=== PATIENT | female | born 1970 | race American Indian/Alaskan Native ===

== ENCOUNTER 2016-05-24 06:32 | Inpatient (IN) | payer BC ==
--- NOTE | 2016-05-19 12:56 | Anesthesia Consultation ---
Anesthesia Consult and Med Hx Date of service: 05/19/16 - Airway Anesthetic Teeth Evaluation: Good ROM Head & Neck: Adequate Mental/Hyoid Distance: Adequate Mallampati Class: Class II Intubation Access Assessment: Probably Good - Pulmonary Exam CTA: Yes - Cardiac Exam Cardiac Exam: RRR - Pre-Operative Health Status ASA Pre-Surgery Classification: ASA2 Proposed Anesthetic Plan: General Nerve Block: TAP - Pulmonary Hx Smoking: Yes (former) - Cardiovascular System Hx Hypertension: Yes (x 15 yrs) - Hematic Hx Anemia: Yes - Other Systems Hx Alcohol Use: Yes (occas) Hx Cancer: No
[2016-05-19 13:11] LABS: Eosinophils % (Auto) 0.6 % (0.0-4.3); Hematocrit 28.1 % (30.3-42.9); Hemoglobin 8.5 gm/dl (10.1-14.3); Mean Corpuscular HGB Conc 30 % (30-34); Mean Corpuscular Hemoglobin 21 pg (28-32); Mean Corpuscular Volume 69 fl (79-97); Platelet Count 310 K/mm3 (140-440); Red Blood Count 4.11 M/mm3 (3.65-5.03); Red Cell Distribution Width 19.6 % (13.2-15.2); White Blood Count 3.5 K/mm3 (4.5-11.0)
[2016-05-19 13:17] LABS: Anion Gap 14 mmol/L; Blood Urea Nitrogen 9 mg/dL (7-17); Calcium 9.4 mg/dL (8.4-10.2); Carbon Dioxide 27 mmol/L (22-30); Chloride 101.8 mmol/L (98-107); Glucose 98 mg/dL (65-100); Potassium 3.7 mmol/L (3.6-5.0); Sodium 139 mmol/L (137-145)
--- NOTE | 2016-05-23 17:48 | Admit Criteria Form ---
Admission Criteria Documentation: AMBULATORY SURGERY EXCEPTION CRITERIA Ambulatory Surgery Exception Criteria ( Place 'X' for any and all applicable criteria): Surgery or procedure performed on ambulatory basis may require inpatient stay for[A] ANY ONE of the following(1)(2)(3)(4)(5)(6)(7)(8)(9): [X] I. A preoperative situation, condition, or finding that warrants inpatient stay as indicated by ANY ONE of the following: [] a) Inpatient care needed because of severity of a disease or condition rather than the surgery (eg, severe cardiac or respiratory disease, severe infection) (15) (16 ) (17) (18) [] b) Emergent procedure (eg, angioplasty for acute ischemia)(19) [X] c) Complex surgical approach or situation as indicated by ANY ONE of the following(3): [X] i) Open approach needed instead of usual endoscopic, transcatheter, or other less invasive procedure [] ii) Difficult approach because of previous operation [] iii) Airway monitoring required after open neck procedures(20)(21) [] iv) Large mass requiring unusually extensive dissection [] v) Additional complicating feature requiring inpatient care (eg, drain management)(22(23): [] d) Major surgery in a pt with high anesthetic risk as indicated by ANY ONE of the following (2)(3)(5)(7)(8): [] i) ASA risk class III or higher (severe systemic disease impairing function) [D] [] ii) Advanced age (eg, older than 85 years)(14)(24) [] iii) Symptomatic heart failure(25) [] iv) Symptomatic asthma or COPD(8)(21) [] v) Morbid obesity with hemodynamic or respiratory problems(20)( 21)(26)(27) [] vi) Obstructive sleep apnea(20)(21) [] vii) Former premature infants who are younger than 60 weeks [] viii) High risk for severe postoperative abnormalities (eg, severe postoperative hypocalcemia after parathyroidectomy for severe hyperparathyroidism)(27)( 28) [] ix) Unstable angina(25) [] e) Drug-related risk requiring inpatient stay as indicated by ANY ONE of the following(5)(10)(14)(32)(33) [] i) Procedure requires discontinuing drugs or other therapy (eg , antiarrhythmic medication, antiseizure medication), which necessitates inpatient observation or treatment.(18)(31) [] ii) Major surgery and high risk drug use as indicated by ANY ONE of the following: [] 1) Active abuse of cocaine or similar drug [] 2) Monoamine oxidase inhibitor use [] 3) Other drug identified as posing risk [] f) Inadequate outpatient care situation as indicated by ANY ONE of the following(5)(10)(14)(32)(33) [] i) Patient lives remote from medical facility and procedure has urgent complication potential, and temporary nearby residence cannot be arranged [] ii) Patient will have postprocedure incapacitation and inadequate assistance at home, or alternative level of care cannot be arranged. [] iii) Patient will have long general anesthesia or procedure side effect resolution time, and competent person to stay with patient on first postoperative night at home or alternative level of care cannot be arranged. []iv) Other inadequate outpatient situation that cannot be handled by other means [] II. A perioperative event, condition, or finding that warrants inpatient stay as indicated by ANY ONE of the following (1)(2)(3): [] a) Inadequate physiologic recovery: cardiovascular, respiratory, or hemodynamic status not normal or near preoperative baseline(18) [] b) Hemodynamic instability [] c) Patient not alert with near normal or baseline mental status [] d) Temperature not normal or as expected and not appropriate for outpatient treatment of condition [] e) Ambulatory or appropriate activity level status not yet achieved post procedure [E](34)(35)(36) [] f) Operative site not appropriate (eg, unexpected or excessive drainage or bleeding) [] g) Postoperative effects not resolved or adequately managed (eg, significant pain or vomiting not appropriate for outpatient or next level of care)(10)(12) [] h) Complicating features requiring inpatient care as indicated by ANY ONE of the following(37): [] i) Severe complications of procedure (eg, bowel injury, airway compromise, vascular injury,severe hemorrhage) [] ii) Extensive (eg, dissection far beyond usual scope of procedure ) or prolonged (eg, 120 minutes beyond usual) surgery needed requiring inpatient postoperative care [] iii) Conversion to an open or complex procedure that requires inpatient care (eg, open vs laparoscopic cholecystectomy, abdominal vs vaginal hysterectomy)(38) [] iv) Comorbid condition or test result identified during or post procedure that requires inpatient care (7) [] v) Malignant hyperthermia(30) [] vi) Other complicating feature requiring inpatient care(22)(23) Inpatient stay may be needed until ALL of the following are present (1)(2)(3)(4) (5)(6)(10)(14)(33)(40): []a) Physiologic recovery: cardiovascular, respiratory, and hemodynamic status normal or near preoperative baseline []b) Hemodynamic stability []c) Patient alert, with near normal or baseline mental status []d) Temperature appropriate: patient afebrile or temperature appropriate for outpt treatment of condition []e) Activity level appropriate: ambulatory or appropriate activity level post procedure []f) Operative site appropriate as indicated by ALL of the following: []i) Site dry or with expected drainage []ii) Any blood noted is as expected for procedure. []g) Postoperative effects resolved or managed as indicated by ALL of the following: []i) Pain management appropriate for outpatient (or next level of) care(10) []ii) Minimal nausea and vomiting: if present, successfully treated with oral medication(12) []iii) Headache, dizziness, or drowsiness (if present) are mild. []h) Voiding status acceptable as indicated by ANY ONE of the following: []i) Voiding spontaneously []ii) No voiding but instructions given for follow-up in 6 to 8 hours []iii) Urinary catheter in place, and instructions given for follow-up []i) Complicating features requiring inpatient care manageable at a lower level of care(37) []j) Comorbid conditions manageable at a lower level of care(37) The original [employer] content created by [employer] has been revised. The portions of the content which have been revised are identified through the use of italic text or in bold, and [facility] [employer] has neither reviewed nor approved the modified material. All other unmodified content is copyright [employer]. Please see references footnoted in the original [employer] edition 2016 Admission Criteria Met: Yes
[~2016-05-24 06:32] MED LIST: ACD-A IV ONE; METHYLENE BLUE IV ONE; NACL 0.9% 500 ML 500 ML IV ONE; NACL 0.9% IR ONE
--- NOTE | 2016-05-24 06:35 | Short Stay Summary ---
Short Stay Documentation Date of service: 05/24/16 Narrative H&P: C/O: Vaginal bleeding Fibroid uterus uterus 44-year-old presents with above complaints and issues. She has had abdominal abnormal and heavy vaginal bleeding for years. Vaginal ultrasound shows a 20 week size fibroid uterus. Status post negative Pap and EMB in the office last month Her preoperative hemoglobin is 8 Gynhx: As above Medhx: HTN, asthma Sughx: s/p brain surgery in 2012, benign lesion. section 30 years ago followed by 3 VBACs Fshx: Exam, she has a bulky but mobile uterus, nontender A: AUB/HMB-L Anemia P: -Desires a hysterectomy. We discussed options for hysterectomy advised abdominal history due to size of uterus and fibroid. After discussing risks of surgery including injury to the bladder bowel vessels, especially the urinary symptoms system, pt expressed interest in the supracervical hysterectomy. Despite informing her of need to continue having Pap smears if that is her choice, patient insists on having a supracervical hysterectomy. -She has signed consent will proceed with supracervical abdominal history - History Past Medical History: anemia, hypertension Past Surgical History: , Other (Neurosurgery) - Allergies and Medications Current Medications: Allergies azithromycin Allergy (Verified 03/19/13 22:10) Itching Home Medications Medication Instructions Recorded Confirmed Last Taken Type Lisinopril/Hydrochlorothiazide 1 tab PO QDAY 03/19/13 05/19/16 03/19/13 History [Zestoretic 10-12.5 mg] ALPRAZolam [Xanax TAB] 0.5 mg PO TID PRN 05/19/16 05/19/16 Unknown History Aspirin [Adult Low Dose Aspirin EC] 81 mg PO 05/19/16 05/11/16 History Active Medications Celecoxib (Celebrex) 200 mg PO PREOP NR Stop: 05/24/16 23:00 Famotidine (Pepcid) 20 mg PO PREOP NR Stop: 05/24/16 23:00 Fentanyl (Sublimaze) 100 mcg IV ONCE LEIGH ANN Stop: 05/24/16 23:00 Gabapentin (Neurontin) 600 mg PO PREOP NR Stop: 05/24/16 23:00 Sodium Chloride (Nacl 0.9% 1000 Ml) 1,000 mls @ 100 mls/hr IV DIRECT LEIGH ANN Midazolam HCl (Versed) 2 mg IV PREOP NR Stop: 05/24/16 23:00 - Physical exam General appearance: no acute distress, well-nourished Lungs: Clear to auscultation, Normal air movement Heart: Regular rate, Normal S1, Normal S2 Gastrointestinal: normal, normoactive bowel sounds, no tenderness, no distended , masses (Uterine mass), no guarding, no organomegaly Female Genitourinary: normal Extremities: no ischemia - Brief post op/procedure progress note Date of procedure: 05/24/16 Pre-op diagnosis: abnormal uterine bleeding, fibroid uterus Post-op diagnosis: same Procedure: Supracervical abdominal hysterectomy with bilateral salpingectomy Anesthesia: GETA Findings: Bulky Fibroid uterus, White catheter seen protruding into the pelvic cavity Surgeon: JESSICA PINON Estimated blood loss: 50-100ml Pathology: list (fibroid uterus, Fallopian tubes) Specimen disposition: to lab Condition: stable - Discharge Diagnoses (1) Abnormal uterine bleeding (AUB) Status: Acute (2) Fibroid, uterine Status: Acute Qualifiers: Uterine leiomyoma location: U (3) Anemia Status: Acute Qualifiers: Anemia type: A Iron deficiency anemia type: chronic blood loss Vitamin B12 deficiency anemia type: V Folate deficiency anemia type: F Bone marrow failure anemia type: B Hemolytic anemia type: H Other causes of anemia: O Qualified Code(s): D50.0 - Iron deficiency anemia secondary to blood loss ( chronic) Short Stay Discharge Plan Follow up with: DANA DUMONT MD [Primary Care Provider] - 7 Days
[2016-05-24] MEDS ORDERED: MARCAINE-EPI 0.5%-1:200,000 INFILTRATI ONE (06:36)
[2016-05-24] MEDS ORDERED: MARCAINE-EPI/PF 0.5%-1:200,000 INFILTRATI ONE (06:36)
[2016-05-24] MEDS ORDERED: DECADRON ONE ×2 (06:36→09:21)
[2016-05-24] MEDS ORDERED: NACL BACTERIOSTATIC INFILTRATI ONE (06:43)
[2016-05-24] MEDS ORDERED: NEURONTIN PO NR (07:00)
[2016-05-24] MEDS ORDERED: PEPCID PO NR (07:00)
[2016-05-24] MEDS ORDERED: NACL 0.9% 1000 ML 1,000 ML IV SCH (07:00)
[2016-05-24] MEDS ORDERED: VERSED IV NR (07:00)
[2016-05-24] MEDS ORDERED: SUBLIMAZE IV SCH (07:00)
[2016-05-24] MEDS ORDERED: SUBLIMAZE ONE (07:14)
[2016-05-24] MEDS ORDERED: XYLOCAINE MPF 2% ONE (07:14)
[2016-05-24] MEDS ORDERED: DIPRIVAN 10 MG/ML IV ONE (07:14)
[2016-05-24] MEDS ORDERED: ZOFRAN ONE (07:14)
[2016-05-24] MEDS ORDERED: ZEMURON IV ONE ×2 (07:14→08:22)
[2016-05-24] MEDS ORDERED: ANCEF/STERILE WATER 2 GM/20 ML IV NR (08:00)
[2016-05-24] MEDS ORDERED: DILAUDID IV PRN (08:33)
--- NOTE | 2016-05-24 08:33 | Anesthesia Day of Surgery ---
Anesthesia Day of Surgery - Day of Surgery Patient Examined: Yes Patient H&P Reviewed: Yes Patient is NPO: Yes
[2016-05-24] MEDS ORDERED: VERSED ONE (08:34)
[2016-05-24] MEDS ORDERED: NEOSTIGMINE ONE (09:03)
[2016-05-24] MEDS ORDERED: ROBINUL ONE (09:03)
[2016-05-24] MEDS ORDERED: NACL 0.9% IR ONE (09:47)
--- NOTE | 2016-05-24 09:53 | Operative Report ---
Operative Report Operative Report: DATE: 05/24/2016 PREOPERATIVE DIAGNOSIS: Abnormal uterine bleeding, Fibroid uterus POSTOP DIAGNOSIS: Same NAME OF PROCEDURE: Supracervical abdominal hysterectomy with bilateral salpingectomy SURGEON: JESSICA PINON MD SALES TRAINING REPRESENTATIVE: Lc Collins ANESTHESIA: Gen. EBL: 100 mL PATHOLOGY SPECIMEN: Fibroid uterus, Bilateral fallopian tubes URINE OUTPUT: 9 50 mL FINDINGS: Large bulky fibroid uterus, normal ovaries and tubes bilaterally, white catheter like tube seen overlying the uterus in the pelvis ?JOB COACH/JOB DEVELOPER shunt DESCRIPTION OF PROCEDURE: She was taken to the operating room where she was prepped and draped in a sterile fashion, she was placed in the dorsal supine position. Pfannenstiel incision was performed through her prior incisional scar which was carried through to underlying rectus fascia which was on the midline. The fascial incision was extended laterally with use of Ceja scissors , the anterior leaf was then grasped with Kochers forceps elevated dissected sharply and bluntly off the underlying rectus in a similar fashion inferior leaf was grasped elevated dissected sharply and bluntly off the underlying rectus. The rectus was in the midline, good visualization of bladder was noted. Note made of white catheter-like tube overlying the uterus extended into the left adnexa. Bulky uterus was then delivered onto the surgical field. Using handheld LigaSure, the right and left utero-ovarian ligaments were clamped cauterized and transected. The round ligament and broad ligament were similarly grasped, cauterized and transected on the left and right adnexa. Uterine arteries on the left and right were grasped cauterized and transected. Using Sonia scissors, the fundus of the uterus was amputated from the cervical stump and removed from the surgical field. Right and left uterines were then suture ligated using 0 Vicryl. Hemostasis was obtained with interrupted figure-of- eight stitches and Bovie cautery. The right and left fallopian tubes were also cauterized and transected and removed from the surgical field. The peritoneal edges were then grasped with hemostats and Isela's elevated copiously irrigation was used to clear the gutters of all clots and debris. Tercel hemostatic agent was then applied over the cervical stump as a means to prevent future bleeding. The peritoneal layer was then closed in a running fashion with 3-0 Vicryl and the rectus was reapproximated with a single figure- of-eight stitch. The fascia was closed in a running fashion with 0 Vicryl and tied in the opposite side. The subcutaneous layer was irrigated and then reapproximated with interrupted [id number] stitches. The skin was closed in a subcuticular manner with 3-0 monocryl. She tolerated the procedure well lap and instrument counts were correct 2 she did receive 2 g of Ancef prior to incision she is transferred to PACU in stable condition thank you.
[2016-05-24] MEDS ORDERED: BENADRYL IV PRN (10:13)
[2016-05-24] MEDS ORDERED: PHENERGAN PR PRN (10:13)
[2016-05-24] MEDS ORDERED: TYLENOL PO PRN (10:13)
[2016-05-24] MEDS ORDERED: NARCAN 0.4 MG/1 ML IV PRN ×2 (10:13)
[2016-05-24] MEDS ORDERED: ZOFRAN IV PRN ×2 (10:13)
[2016-05-24] MEDS ORDERED: REGLAN IV PRN (10:13)
[2016-05-24] MEDS ORDERED: D5LR 1,000 ML IV SCH (11:00)
[2016-05-24] MEDS ORDERED: MORPHINE PCA 30MG/30ML IV SCH (11:00)
--- NOTE | 2016-05-24 11:00 | Post Anesthesia Evaluation ---
- Post Anesthesia Evaluation Patient Participated: Yes Airway Patent: Yes Stable Respiratory Function: Yes Nausea/Vomiting: No Temp > 96.8F: Yes Pain Manageable: Yes Adequeate Hydration: Yes Anesthesia Complications: No Block Receding Appropriately: Not Applicable Patient on Ventilator: No
[2016-05-24] MEDS ORDERED: SENOKOT S PO SCH (22:00)
[2016-05-24] MEDS: COLACE PO SCH (23:51)
--- NOTE | 2016-05-25 07:14 | Progress Note ---
Assessment and Plan POD # 1 s/p Supracervical Hyst -Doing well P: -Discussed BUSINESS MAIL ENTRY CLERK shunt noted low in pelvic cavity. Advised schedule neuro visit CHARANJIT on discharge -Continue routine postop care -Anticipate discharge in 24 hours - Patient Problems (1) S/P abdominal supracervical subtotal hysterectomy Current Visit: Yes Status: Acute (2) Abnormal uterine bleeding (AUB) Current Visit: Yes Status: Acute (3) Fibroid, uterine Current Visit: Yes Status: Acute Qualifiers: Uterine leiomyoma location: U (4) Anemia Current Visit: Yes Status: Acute Qualifiers: Anemia type: A Iron deficiency anemia type: chronic blood loss Vitamin B12 deficiency anemia type: V Folate deficiency anemia type: F Bone marrow failure anemia type: B Hemolytic anemia type: H Other causes of anemia: O Qualified Code(s): D50.0 - Iron deficiency anemia secondary to blood loss ( chronic) Subjective - Subjective Date of service: 05/25/16 Principal diagnosis: POD # 1 s/p TAL Interval history: Seen and examined, stable doing well. No fever or chills, no shortness of breath or chest pain, no vaginal bleeding. BP labile, will restart hypertensive meds Patient reports: appetite normal, voiding normally, pain well controlled, flatus , no dizzy ambulation, no nauseated Objective - Vital Signs Latest vital signs: Vital Signs Temp Pulse Pulse Resp BP BP Pulse Ox 05/25/16 04:15 99.0 F 59 L 20 166/78 05/25/16 00:00 99.0 F 59 L 20 156/89 05/24/16 20:00 98.1 F 68 20 171/86 05/24/16 16:47 98.3 F 67 20 169/95 05/24/16 14:00 18 05/24/16 11:30 98.2 F 66 66 22 150/97 150/97 05/24/16 11:00 68 14 129/70 100 05/24/16 10:45 69 68 H 143/100 100 05/24/16 10:30 76 17 155/103 100 05/24/16 10:25 77 16 160/99 100 05/24/16 10:20 79 17 157/100 100 05/24/16 10:17 70 20 168/71 100 05/24/16 10:12 78 19 167/91 100 05/24/16 07:44 65 16 137/83 100 05/24/16 07:39 77 22 151/86 99 05/24/16 07:33 70 21 140/89 100 05/24/16 07:29 72 16 146/90 100 05/24/16 07:11 64 19 154/92 100 Intake and Output 05/24/16 05/25/16 05/25/16 22:59 06:59 14:59 Intake Total 860 1480 Output Total 950 2400 Balance -90 -920 Intake: IV 500 1000 D5lr 1,000 ml @ 125 mls/ 500 1000 hr IV DIRECT [facility] Rx#: [id number] Oral 360 480 Output: Urine 950 2400 Indwelling Catheter 950 2400 Other: Total, Intake Amount 360 240 Total, Output Amount 950 800 Voiding Method Indwelling Catheter - Exam Lungs: Present: Clear to auscultation Abdomen: Present: normal appearance, soft, normal bowel sounds. Absent: distention, tenderness, guarding, rigidity Incision: Present: dry, intact - Labs Labs: Abnormal lab results 05/19/16 Range/Units 12:40 Crossmatch See Detail
[2016-05-25 07:50] LABS: Hematocrit 23.5 % (30.3-42.9); Hemoglobin 7.2 gm/dl (10.1-14.3)
[2016-05-25] MEDS: ZESTRIL PO SCH (10:00)
--- NOTE | 2016-05-25 10:49 | Progress Note ---
Subjective Date of service: 05/25/16 Principal diagnosis: POD # 1 s/p TAL Interval history: 1st POD after hysterectomy Patient is comfortable. Pain is very well under control. No nausea or vomiting. No anesthesia complications Objective - Constitutional Vitals: Vital Signs - 12hr 05/25/16 05/25/16 05/25/16 00:00 04:15 08:20 Temperature 99.0 F 99.0 F Pulse Rate [ 59 L 59 L Right] Respiratory 20 20 20 Rate Blood Pressure 156/89 166/78 [Right Arm] 05/25/16 08:30 Temperature 98.4 F Pulse Rate [ 82 Right] Respiratory 20 Rate Blood Pressure 167/101 [Right Arm] - Labs CBC & Chem 7: 05/25/16 07:13 05/19/16 12:40 Labs: Abnormal lab results 05/25/16 Range/Units 07:13 Hgb 7.2 L (10.1-14.3) gm/dl Hct 23.5 L (30.3-42.9) %
[2016-05-25] MEDS: NORMODYNE PO SCH ×2 (13:25→21:12)
[2016-05-25] MEDS: PERCOCET 5/325 PO PRN ×2 (14:45→20:44)
[2016-05-25 15:42] LABS: Hematocrit 21.7 % (30.3-42.9); Hemoglobin 6.8 gm/dl (10.1-14.3)
[2016-05-25] MEDS: COLACE PO SCH (18:23)
[2016-05-26 01:31] LABS: Hematocrit 22.4 % (30.3-42.9); Hemoglobin 6.8 gm/dl (10.1-14.3)
[2016-05-26] MEDS: PERCOCET 5/325 PO PRN (04:19)
--- NOTE | 2016-05-26 06:37 | Discharge Summary ---
Providers - Providers Date of Admission: 05/24/16 06:32 Date of discharge: 05/26/16 Attending physician: JESSICA PINON Primary care physician: DANA DUMONT Hospitalization Reason for admission: IUFD, other (status post hysterectomy for fibroid uterus) Procedure: other (Supracervical hysterectomy) Incision: dry, intact Discharge diagnosis: other (AUB/HMB-L is post-supracervical hysterectomy) Hospital course: 44-year-old presents with fibroid uterus and anemia. She has had abnormal and heavy vaginal bleeding for years. Vaginal ultrasound shows a 20 week size fibroid uterus. Status post negative Pap and EMB in the office last month Her preoperative hemoglobin is 8. During surgery, her TONG HOOKER shunt was noted to be in the pelvis. I Paged Dr. Barron of Neurosurgery who was gracious enough to call me back ~ 24 hours later. Per neurosurgery, no acute need to intervene with the TONG HOOKER shunt at this time. She can follow up with her neurosurgeon on discharge. She was admitted to the floor.. Postop course complicated by elevated blood pressure controlled with antihypertensives. Was started back on her lisinopril 20 mg daily and then labetalol 200 mg twice a day was added. Her hemoglobin and hematocrit dropped from ~9 to ~ 7, she remained stable and declined blood transfusion. She was seen and examined on 05/25/2016. Patient stable and doing well no issues. No dizziness or weakness on ambulation, declined blood transfusion Her abdomen was soft without tenderness, normal bowel sounds and s/p bowel movement no CVA tenderness Condition at discharge: Good Disposition: DISCHARGED TO HOME OR SELFCARE - Discharge Diagnoses (1) S/P abdominal supracervical subtotal hysterectomy Status: Acute (2) Abnormal uterine bleeding (AUB) Status: Acute (3) Fibroid, uterine Status: Acute Qualifiers: Uterine leiomyoma location: U (4) Anemia Status: Acute Qualifiers: Anemia type: A Iron deficiency anemia type: chronic blood loss Vitamin B12 deficiency anemia type: V Folate deficiency anemia type: F Bone marrow failure anemia type: B Hemolytic anemia type: H Other causes of anemia: O Qualified Code(s): D50.0 - Iron deficiency anemia secondary to blood loss ( chronic) (5) HTN (hypertension) Status: Acute Qualifiers: Hypertension type: H Plan - Discharge Medications Prescriptions: Ibuprofen [Motrin 600 MG tab] 600 mg PO Q8H PRN #30 tablet PRN Reason: Pain Labetalol [Normodyne TAB] 200 mg PO BID #60 tablet Multivitamin with Iron [Multivitamins with Iron] 1 each PO DAILY #30 tablet oxyCODONE /ACETAMINOPHEN [Percocet 5/325] 1 tab PO Q6HR PRN #30 tablet PRN Reason: Pain - Provider Discharge Summary Activity: no sex for 6 weeks, no heavy lifting 4 weeks, no strenuous exercise Diet: routine Additional instructions: [] Smoking cessation referral if applicable(refer to patient education folder for contact #) [] Refer to [facility] Booklet Call your doctor immediately for: * Fever > 100.5 * Heavy vaginal bleeding ( >1 pad per hour) * Severe persistent headache * Shortness of breath * Reddened, hot, painful area to leg or breast * Drainage or odor from incision. * Keep incision clean and dry at all times and follow doctor's instructions regarding bathing/showering - Follow up plan Follow up: DANA DUMONT MD [Primary Care Provider] - 7 Days JESSICA PINON MD [Staff Physician] - 14 Days
[2016-05-26] MEDS: ZESTRIL PO SCH (08:15)
[2016-05-26] MEDS: NORMODYNE PO SCH (08:15)
[2016-05-26 08:49] VITALS: BP 155/85
== END 2016-05-26 08:48 | disposition home or self-care (01) | DRG 742 ==
LOC: 3A 06:32 → OB 10:48
PROVIDERS: ADMIT Obstetrics & Gynecology Gynecology; ATTEND Obstetrics & Gynecology Gynecology
PROC: 0UT90ZZ Resection of Uterus, Open Approach (ICD-10-PCS; principal; 2016-05-24)
PROC: 0UT70ZZ Resection of Bilateral Fallopian Tubes, Open Approach (ICD-10-PCS; 2016-05-24)
DX: D25.9 Leiomyoma of uterus, unspecified (principal); R71.0 Precipitous drop in hematocrit; I10 Essential (primary) hypertension; J45.909 Unspecified asthma, uncomplicated; Z87.891 Personal history of nicotine dependence; Z79.82 Long term (current) use of aspirin; Z79.899 Other long term (current) drug therapy
CPT/HCPCS: 36415; 64450; 80048; 84703; 85014; 85018; 85025; 86850; 86900; 86901; 86920; 88307; 88311; C9250; J0690; J1100; J2250; J2270; J2405; J2704; J2710; J3010; J7030; J7121; Q9968